=== PATIENT | male | born 1970 | race Caucasian/White ===

== ENCOUNTER 2017-01-05 09:19 | Emergency (ER) | payer MEDICAID ==
[~2017-01-05] VITALS: Ht 172.7 cm; Wt 86.5 kg
[2017-01-05 09:22] VITALS: Ht 172.7 cm; Wt 86.5 kg
[2017-01-05] MEDS ORDERED: KETOROLAC 60 MG INJ IM STA (09:49)
--- NOTE | 2017-01-05 10:51 | ERD ---
ER Documentation Chief Complaint Date/Time DATE: 01/05/17 TIME: 10:33 Chief Complaint left heel pain x 4 months HPI This is a 46 year old male presenting to the emergency department complaining left heel pain for the past 4 months which has worsened in the past 2 days. Patient describes the pain as sharp localized in the plantar surface and heel of his left foot and rates it 10 out of 10. Patient denies any injury or trauma however he states that he was playing soccer about 4 months ago when it started. Patient states that he tried ibuprofen his last dose was last night and it was unremarkable. Patient states that he is tried different insoles and shoes as well. Patient states that he is able to ambulate but he walks on his toes ROS All systems reviewed and are negative except as per history of present illness. Medications Home Meds Active Scripts Ibuprofen* (Motrin*) 600 Mg Tab, 600 MG PO Q6H Y for PAIN AND OR ELEVATED TEMP, #30 TAB Prov:PAULY MOLINA PA-C 01/05/17 Allergies Allergies: Coded Allergies: No Known Allergy (Unverified , 01/05/17) PMhx/Soc Medical and Surgical Hx: pt denies Medical Hx, pt denies Surgical Hx Hx Alcohol Use: No Hx Substance Use: No Hx Tobacco Use: No Physical Exam Vitals Vital Signs Date Time Temp Pulse Resp B/P Pulse Ox O2 Delivery O2 Flow Rate FiO2 01/05/17 09:22 98.4 77 18 128/77 98 Physical Exam General: WD/WN, in no apparent distress, non-toxic appearing HENT: NC/AT Eyes: Conjunctiva normal Neck: Supple Pulm: Clear to auscultation, normal labored breathing; no wheezing/rales/ rhonchi heard CV: Good capillary refill GI: Non-distended, no guarding Back: No masses Ext: Tender to palpation in the plantar surface of the left foot and heel, nontender in the Achilles tendon region, full active and passive range of motion , +2 pedal pulses bilaterally Neuro: Moves on all fours Skin: intact Psych: Normal mood Results 24 hrs Current Medications Medications (Trade) Dose Ordered Sig/Ray Route PRN Reason Start Time Stop Time Status Last Admin Dose Admin Ketorolac Tromethamine (Toradol) 60 mg ONCE STAT IM 01/05/17 09:49 01/05/17 09:51 DC 4/26/17 09:53 Procedures/MDM This is a 46 year old male presenting to the emergency department complaining severe left heel pain for the past 4 months which has worsened in the past 2 days. This pain is likely due to plantar fasciitis and plantar calcaneal spur. There was no evidence of any fracture, dislocation. An XR of the left foot was done and radiologist stated: small plantar calcaneal spur. Patient was placed in Harley bandage for comfort and given crutches so he would not have to walk on his tippy toes. Patient is suitable to follow-up with an orthopedist or commercial maintenance technician for further evaluation and management. I have given him instructions on a few exercises for plantar fasciitis. I discussed to take ibuprofen every 6 hours. Patient is neurovascularly intact and he is stable for discharge with precautions to return to the emergency room for any worsening signs or symptoms. Patient understands and agrees with this plan Departure Diagnosis: Primary Impression: Heel pain Additional Impressions: Plantar fasciitis Calcaneal spur of left foot Condition: Stable PAULY MOLINA PA-C Jan 05, 2017 10:51
--- NOTE | 2017-01-05 10:56 | RADRPT ---
PROCEDURE: Left foot series CLINICAL INDICATION: heel pain. TECHNIQUE: 3 views. COMPARISON: None FINDINGS: No fractures are noted. Joint spaces are well maintained. No erosions are noted. The soft tissues are unremarkable. There is a small plantar calcaneal spur. IMPRESSION: 1. Small plantar calcaneal spur. RPTAT: HH .Joselito Abrams MD, MD Date Time Electronically viewed and signed by .Joselito Abrams MD, on 01/05/2017 10:55 .G/
[2017-01-05] MEDS ORDERED: IBUP-1542 PO (11:02)
== END 2017-01-05 11:45 | disposition home or self-care (01) ==
LOC: FTE 09:19
DX: M79.672 Pain in left foot (principal); M72.2 Plantar fascial fibromatosis; M77.32 Calcaneal spur, left foot
CPT/HCPCS: 73630; J1885; 96372